=== PATIENT | male | born 1955 | race Caucasian/White ===

== ENCOUNTER 2017-07-21 06:59 | Day surgery (SDC) | payer BC ==
[~2017-07-21] VITALS: Ht 177.8 cm; Wt 97.5 kg
[~2017-07-21 06:59] MED LIST: AMLODIPINE5 MG PO; BAYER ASPIRIN E81 MG PO; CENTRU3 PO; CENTRUM PO; CO Q 10100 MG PO; FISH OIL1000 MG PO; GLUCOSAMI12 PO; OMEGA 31000 MG PO; SG ASA LOW81 M1 PO; [UNRECOGNIZED DRUG - OTHER] PO
[2017-07-21] MEDS ORDERED: TYLENOL 500MG TAB PO (09:07)
[2017-07-21 11:05] VITALS: BP 170/91
== END 2017-07-21 11:18 | disposition home or self-care (01) | DRG 951 ==
LOC: ENDO 06:59
PROVIDERS: ATTEND Surgery
PROC: 0DJD8ZZ Inspection of Lower Intestinal Tract, Via Natural or Artificial Opening Endoscopic (ICD-10-PCS; principal; 2017-07-21)
DX: Z12.11 Encounter for screening for malignant neoplasm of colon (principal)

== ENCOUNTER 2017-09-01 13:51 | Emergency (ER) | payer BC ==
[~2017-09-01 13:51] MED LIST changes: +TYLENOL 500MG TAB PO
== END 2017-09-01 14:30 | disposition left against medical advice (07) | DRG 951 ==
LOC: ED 13:51 → LWOBS 13:59
DX: Z91.19 Patient's noncompliance with other medical treatment and regimen (principal)

== ENCOUNTER 2019-10-12 08:51 | Inpatient (IN) | payer MEDICARE ==
[2019-10-12] VITALS (8 sets, daily range): BP systolic 137–163; BP diastolic 85–99
[~2019-10-12] VITALS: Ht 177.8 cm; Wt 90.7 kg
[~2019-10-12 08:51] MED LIST changes: +BETIMOL0.51 OU; +COQ10100 MG PO; +DORZOLAMIDE HYDRO2 % OU; +LOSARTAN POTASS50 MG PO; +PRESERVISION ARED1 PO; +VITAMIN C1000 MG PO; +XALATAN 0.005%2.5 ML OU
[2019-10-13 03:45] VITALS: BP 143/89
[2019-10-13 05:22] LABS: HEMATOCRIT 40.2 % (39.0-50.0); HEMOGLOBIN 13.2 g/dl (14.0-18.0); IMMATURE GRANULOCYTES 0.7 % (0.0-5.0); MEAN CELL VOLUME 91.6 fL CALC (80.0-100.0); MEAN CORPUSCULAR HGB 30.1 pG CALC (26.0-32.0); MEAN CORPUSCULAR HGB CONC 32.8 g/dL CAL (32.0-36.0); NEUT# 11.49 thou/uL (1.82-7.42); RED BLOOD COUNT 4.39 mill/uL (4.70-6.10); RED CELL DISTRI WIDTH 12.8 % (11.5-15.5)
[2019-10-13 05:36] LABS: ANION GAP 13 (6-22 (CALC)); BUN 16 mg/dL (8-23); BUN/CREATININE RATIO 24 (12-20 (CALC)); CARBON DIOXIDE 24 mmol/l (22-30); CHLORIDE 103 mmol/l (95-108); CREATININE 0.7 mg/dL (0.7-1.3); GFR > 60 ML/MIN (>=60 (CALC)); GFR FOR AFR.AMER. > 60 ML/MIN (>=60 (CALC)); POTASSIUM 4.3 mmol/l (3.5-5.1); SODIUM 137 mmol/l (137-146)
[2019-10-13 07:50] VITALS: BP 160/92
[2019-10-13 10:56] VITALS: BP 143/91
[2019-10-13 15:13] VITALS: BP 151/78
[2019-10-13 18:53] VITALS: BP 144/87
[2019-10-13 23:15] VITALS: BP 138/81
[2019-10-14 03:42] VITALS: BP 140/77
[2019-10-14 08:00] VITALS: BP 133/83
[2019-10-14 16:16] VITALS: BP 137/79
[2019-10-14 18:51] VITALS: BP 154/89
[2019-10-15 04:24] VITALS: BP 145/84
[2019-10-15 05:29] LABS: IMMATURE GRANULOCYTES 0.4 % (0.0-5.0); MEAN CELL VOLUME 93.6 fL CALC (80.0-100.0); MEAN CORPUSCULAR HGB 29.4 pG CALC (26.0-32.0); MEAN CORPUSCULAR HGB CONC 31.5 g/dL CAL (32.0-36.0); NEUT# 7.56 thou/uL (1.82-7.42); RED BLOOD COUNT 3.26 mill/uL (4.70-6.10); RED CELL DISTRI WIDTH 12.8 % (11.5-15.5)
[2019-10-15 05:33] LABS: ANION GAP 8 (6-22 (CALC)); BUN 13 mg/dL (8-23); BUN/CREATININE RATIO 21 (12-20 (CALC)); CARBON DIOXIDE 27 mmol/l (22-30); CHLORIDE 103 mmol/l (95-108); CREATININE 0.6 mg/dL (0.7-1.3); GFR > 60 ML/MIN (>=60 (CALC)); GFR FOR AFR.AMER. > 60 ML/MIN (>=60 (CALC)); POTASSIUM 3.7 mmol/l (3.5-5.1); SODIUM 134 mmol/l (137-146)
[2019-10-15 05:41] LABS: HEMATOCRIT 30.5 % (39.0-50.0); HEMOGLOBIN 9.6 g/dl (14.0-18.0)
[2019-10-15 07:35] VITALS: BP 138/79
[2019-10-15 19:00] VITALS: BP 153/90
[2019-10-16 04:17] VITALS: BP 151/81
[2019-10-16 08:02] VITALS: BP 166/95
[2019-10-16 15:00] VITALS: BP 146/86
[2019-10-16 18:55] VITALS: BP 153/89
[2019-10-17 04:15] VITALS: BP 146/85
[2019-10-17 08:13] VITALS: BP 159/96
[2019-10-17 08:33] VITALS: BP 146/85
[2019-10-17] MEDS ORDERED: PERCOCET 5/325M1 TAB PO (12:57)
== END 2019-10-17 14:20 | disposition home or self-care (01) | DRG 331 ==
LOC: ORM 08:51 → MS2 15:20
PROVIDERS: ADMIT Surgery; ATTEND Surgery
PROC: 0WQF0ZZ Repair Abdominal Wall, Open Approach (ICD-10-PCS; principal; 2019-10-12)
PROC: 0DB80ZZ Excision of Small Intestine, Open Approach (ICD-10-PCS; 2019-10-12)
PROC: 0DN80ZZ Release Small Intestine, Open Approach (ICD-10-PCS; 2019-10-12)
PROC: 0WJF4ZZ Inspection of Abdominal Wall, Percutaneous Endoscopic Approach (ICD-10-PCS; 2019-10-12)
PROC: 0DQ80ZZ Repair Small Intestine, Open Approach (ICD-10-PCS; 2019-10-12)
DX: K43.2 Incisional hernia without obstruction or gangrene (principal); K66.0 Peritoneal adhesions (postprocedural) (postinfection); I10 Essential (primary) hypertension; Z11.59 Encounter for screening for other viral diseases
CPT/HCPCS: J0131; J1100

== ENCOUNTER 2019-10-25 10:36 | Inpatient (IN) | payer MEDICARE ==
[2019-10-25] VITALS (16 sets, daily range): BP systolic 135–181; BP diastolic 66–91
[~2019-10-25] VITALS: Ht 177.8 cm; Wt 89.8 kg
[~2019-10-25 10:36] MED LIST changes: +PERCOCET 5/325M1 TAB PO
--- NOTE | 2019-10-25 10:38 | NUR ---
PT AMBULATED TO RM 9 WITH STEADY GAIT. B/S TRIAGE COMPLETED. AT B/S.
[2019-10-25 11:11] LABS: IMMATURE GRANULOCYTES 2.4 % (0.0-5.0); MEAN CELL VOLUME 96.7 fL CALC (80.0-100.0); MEAN CORPUSCULAR HGB 29.9 pG CALC (26.0-32.0); MEAN CORPUSCULAR HGB CONC 30.9 g/dL CAL (32.0-36.0); NEUT# 16.16 thou/uL (1.82-7.42); RED BLOOD COUNT 2.11 mill/uL (4.70-6.10); RED CELL DISTRI WIDTH 14.9 % (11.5-15.5)
[2019-10-25 11:21] LABS: HEMATOCRIT 20.4 % (39.0-50.0); HEMOGLOBIN 6.3 g/dl (14.0-18.0)
--- NOTE | 2019-10-25 11:30 | NUR ---
PATEINT RESTING AWAITING LAB AND RADIOLOGY RESULTS PATIENT DENIES ANY PAIN AT THIS TIME
[2019-10-25 11:39] LABS: ACT PARTIAL THROMBO TIME 21.9 SECONDS (20.0-32.5); ALBUMIN 3.9 g/dL (3.2-5.0); ALKALINE PHOSPHATASE 66 u/l (38-126); ANION GAP 13 (6-22 (CALC)); BILIRUBIN, TOTAL 0.6 mg/dL (0.0-1.4); BUN 17 mg/dL (8-23); BUN/CREATININE RATIO 26 (12-20 (CALC)); CARBON DIOXIDE 22 mmol/l (22-30); CHLORIDE 102 mmol/l (95-108); CREATININE 0.7 mg/dL (0.7-1.3); GFR > 60 ML/MIN (>=60 (CALC)); GFR FOR AFR.AMER. > 60 ML/MIN (>=60 (CALC)); POTASSIUM 4.1 mmol/l (3.5-5.1); PROTHROMBIN TIME 10.1 SECONDS (9.0-12.5); SGOT/AST 19 u/l (19-48); SODIUM 133 mmol/l (137-146); TOTAL PROTEIN 5.9 g/dL (6.3-8.2)
--- NOTE | 2019-10-25 12:22 | NUR ---
PATIENT RETURNED FROM RADIOLOGY AWAITNG RESULTS AND BLOOD TRANSFUSION
--- NOTE | 2019-10-25 13:39 | NUR ---
BLOOD TRANSFUSING PER ORDERS. PATIENT DENIES ANY SON, PAIN OR ANY OTHER DISCOMFORT AT THIS TIME. FAMILY AT BEDSIDE WILL CONTINUE TO MONITOR
[2019-10-25 14:15] LABS: URINE BILIRUBIN - DIPSTICK NEGATIVE (NEGATIVE); URINE BLOOD DIPSTICK NEGATIVE (NEGATIVE); URINE COLOR YELLOW; URINE GLUCOSE - DIPSTICK NEGATIVE (NEGATIVE); URINE KETONE NEGATIVE (NEGATIVE); URINE LEUK ESTERASE NEGATIVE (NEGATIVE); URINE NITRITE - DIPSTICK NEGATIVE (Negative); URINE PROTEIN - DIPSTICK NEGATIVE (NEG-TRACE); URINE SPECIFIC GRAVITY <=1.005; URINE UROBILINOGEN - DIPSTICK 0.2 E.U./dL (0.2)
--- NOTE | 2019-10-25 14:30 | NUR ---
PATIENT RESTING AWAITING LAB AND RADIOLOGY RESULTS PATIENT DENIES ANY PAIN OR DISCOMFORT AT THIS TIME
[2019-10-25] MEDS ORDERED: CENTRUM PO (15:27)
[2019-10-25] MEDS ORDERED: BETIMOL0.51 (15:28)
[2019-10-25] MEDS ORDERED: COENZYME Q-10100 MG (15:28)
[2019-10-25] MEDS ORDERED: LOSARTAN POTASS50 MG PO (15:29)
[2019-10-25] MEDS ORDERED: DORZOLAMIDE HYDRO2 % (15:29)
[2019-10-25] MEDS ORDERED: ASCORBIC ACD1000 MG PO (15:30)
[2019-10-25] MEDS ORDERED: XALATAN 0.005%2.5 ML OP (15:30)
--- NOTE | 2019-10-25 15:30 | NUR ---
PATIENT RESTING BLOOD TRANSFUSING PER ORDERS. PATIENT DENIES ANY PAIN OR SOB AT THIS TIME
--- NOTE | 2019-10-25 15:45 | NUR ---
REPORT CALLED TO ICU
--- NOTE | 2019-10-25 16:06 | NUR ---
PATIENT TRANSPORTED TO ICU
--- NOTE | 2019-10-25 16:15 | NUR ---
PT ADMITTED TO ICU BED 4 FROM ED FOR RECTAL BLEEDING VIA STRETCHER, PT STOOD AND TRANSFERRED SELF WITH STEADY GAIT. PT A&0X4, ABLE TO MAKE NEEDS KNOWN. SA02@100% ON RA. LS CLEAR THROUGHOUT. PT NST ON TELEMETRY, HR 102. PT DENIES CP, SOB OR DISTRESS AT THIS TIME. PT HAS 13 YANCI MIDLINE AT ABDOMEN FROM RECENT SURGICAL HERNIA REPAIR, EDGES APPROX. CDI, NO DRAINAGE NOTED WITH 2X2 DRSG ON LUQ WITH SERSANG DRAINAGE, RLQ CDI. ABDOMEN DISTENDED AND HARD. PT DENIES TENDERNESS. BSX4 HYPOACTIVE. PT PASSING GAS AND LBM 8-5-20, DIARRHEA. PT ORIENTED TO ROOM, UNIT AND CALL LIGHT. PT VERBALIZED UNDERSTANDING.
--- NOTE | 2019-10-25 16:30 | NUR ---
Peripheral IV started. IV access obtained with #20 AutoGuard at Left Forearm with IV stick attempts. Flushes easily with good blood return.
--- NOTE | 2019-10-25 16:55 | NUR ---
LABS DRAWN AT BEDSIDE. PT TOLERATED WELL. JAZLYN HUMPHREY AT BEDSIDE FOR ASSESSMENT AND TO DISCUSS PLAN OF CARE. AT BEDSIDE.
--- NOTE | 2019-10-25 18:24 | NUR ---
LAB AT BEDSIDE FOR BLOOD DRAW. PT TOLERATED WELL.
--- NOTE | 2019-10-25 19:45 | NUR ---
PATIENT ASLEEP. RESP NON-LABORED. SR ON MONITOR.
--- NOTE | 2019-10-25 20:35 | NUR ---
PATIENT RESTING IN BED WATCHING TV. NO C/O PAIN OR DISCOMFORTS. RESP NON-LABORED. RA O2 SAT 98% LUNGS CLEAR. ABD DISTENDED AND FIRM WITH HYPOACTIVE BOWEL SOUNDS. PATIENT S/P ABD SURGERY AAPROX 2 WEEKS AGO-MIDLINE ABD INC SUKHDEV WITH YANCI INTACT, INC LINE WELL APPROXIMATED. SALINE LOCK INTACT IN LFA. IV IN RAC WITH NS INFUSING AT 75 ML/HR, BOTH SITES BENIGN. CARDIAC MONTIOR SHOWS SR. DICSUSSED PLAN OF CARE. DENIES NEEDS AT THIS TIME. CALL MOORE IN REACH.
--- NOTE | 2019-10-25 21:50 | NUR ---
VSS. NEW ORDERS RECEIVED FROM DR HERRMANN.
[2019-10-25 22:17] LABS: HEMOGLOBIN 7.3 g/dl (14.0-18.0)
--- NOTE | 2019-10-25 23:30 | NUR ---
PATIENT UP TO BSC, PASSED A MODERATE AMOUNT OF LIQUID BURGANDY STOOL. PATIENT STATES FELT WEAK AND BROKE INTO A SWEAT WHILE HE WAS UP. BACK IN BED NOW. PATIENT REINSTUCTED TO CALL FOR ASSISTANCE. BP 172/75, HR 100, RR 16, O2 SAT 97% SALINE LOCK IN LFA LEAKING AT SITE WHEN FLUSHED, DC'D SITE. RAC SITE REMAINS PATENT WITH NS AT 75 ML/HR.
[2019-10-26] VITALS (21 sets, daily range): BP systolic 110–167; BP diastolic 68–90
--- NOTE | 2019-10-26 00:15 | NUR ---
RESTING WITH EYES CLOSED.
--- NOTE | 2019-10-26 02:00 | NUR ---
VSS. SR ON MONITOR.
--- NOTE | 2019-10-26 04:00 | NUR ---
PATIENT ASLEPP. RESP NON-LABORED. VSS. IV INFUSING WITHOUT INCIDENT.
--- NOTE | 2019-10-26 05:10 | NUR ---
ELEVATOR INSTALLER HERE TO DRAW BLOOD FOR AM LABS.
[2019-10-26 05:26] LABS: HEMATOCRIT 20.6 % (39.0-50.0); IMMATURE GRANULOCYTES 1.6 % (0.0-5.0); MEAN CELL VOLUME 95.8 fL CALC (80.0-100.0); MEAN CORPUSCULAR HGB 30.7 pG CALC (26.0-32.0); NEUT# 14.04 thou/uL (1.82-7.42); RED BLOOD COUNT 2.15 mill/uL (4.70-6.10); RED CELL DISTRI WIDTH 15.5 % (11.5-15.5)
[2019-10-26 05:54] LABS: ALKALINE PHOSPHATASE 44 u/l (38-126); ANION GAP 8 (6-22 (CALC)); BILIRUBIN, TOTAL 0.8 mg/dL (0.0-1.4); BUN 16 mg/dL (8-23); BUN/CREATININE RATIO 23 (12-20 (CALC)); CARBON DIOXIDE 23 mmol/l (22-30); CHLORIDE 106 mmol/l (95-108); CREATININE 0.7 mg/dL (0.7-1.3); GFR > 60 ML/MIN (>=60 (CALC)); GFR FOR AFR.AMER. > 60 ML/MIN (>=60 (CALC)); POTASSIUM 4.5 mmol/l (3.5-5.1); SGOT/AST 17 u/l (19-48); SODIUM 133 mmol/l (137-146); TOTAL PROTEIN 4.9 g/dL (6.3-8.2)
[2019-10-26 05:57] LABS: HEMOGLOBIN 6.6 g/dl (14.0-18.0)
--- NOTE | 2019-10-26 06:15 | NUR ---
DR HERRMANN INFORMED OF AM HG/HCT RESULTS OF 6.6/20.6. ORDERS RECEIVED.
--- NOTE | 2019-10-26 06:45 | NUR ---
RECIEVED REPORT FROM LESA GRAY. ASSUMED PT CARE.
--- NOTE | 2019-10-26 07:30 | NUR ---
PT A&0X4, ABLE TO MAKE NEEDS KNOWN. RESPIRATIONS EVEN/UNLABORED, SA02@99%RA. LS CLEAR THROUGHOUT, ABDOMEN HARD/DISTENDED. YANCI INTACT, PT REMAINS SR ON TELEMETRY, HR 94. PT DENIES CP, SOB OR DISTRESS AT THIS TIME. PT REMAINS NPO AT THIS TIME. CALL LIGHT IN REACH. WILL MONITOR.
--- NOTE | 2019-10-26 08:00 | NUR ---
DR. BARRETT AT BEDSIDE FOR AN ASSESSMENT AND TO DISCUSS PLAN OF CARE. NEW ORDERS RECIEVED.
--- NOTE | 2019-10-26 08:10 | NUR ---
DR. HERRMANN AT BEDSIDE FOR ASSESSMENT AND TO DISCUSS PLAN OF CARE. NEW ORDERS RECIEVED.
--- NOTE | 2019-10-26 08:45 | NUR ---
PT ASSISTED TO BSC, LG BLOODY BM.
--- NOTE | 2019-10-26 09:00 | NUR ---
DRESSING TO ABDOMEN CHANGED. PT TOLERATED WELL.
--- NOTE | 2019-10-26 09:30 | NUR ---
PRBC INFUSION PLACED ON HOLD, IV SITE LEAKING. DR. HERRMANN NOTIFIED. BLOOD BANK NOTIFIED, BLOOD CAN BE CLAMPED AND HELD FOR UP TO 8HRS PER ADEBAYO, PICC LINE ORDERED. THEN INFUSION WITH RESUME. DR. HERRMANN AWARE. WILL MONITOR.
--- NOTE | 2019-10-26 09:45 | NUR ---
PT OFF UNIT FOR PICC LINE PLACEMENT.
--- NOTE | 2019-10-26 10:30 | NUR ---
PT BACK ON UNIT. INFUSION RESUMED.
--- NOTE | 2019-10-26 10:45 | NUR ---
IV site discontinued, cath intact. No edema , no redness, voices no discomfort.
--- NOTE | 2019-10-26 10:50 | NUR ---
ARRINVED AT BEDSIDE
--- NOTE | 2019-10-26 12:00 | NUR ---
PT ASSISTED TO BSC, MODERATE BURGENDY BM
--- NOTE | 2019-10-26 14:00 | NUR ---
PT BACK IN BED, CONTINUES WITH BOWEL PREP. BLOOD TRANSFUSION ENDED. NO DISTRESS NOTED AT THIS TIME. CALL LIGHT IN REACH. WILL MONITOR.
--- NOTE | 2019-10-26 16:00 | NUR ---
ARRIVED AT BEDSIDE.
--- NOTE | 2019-10-26 18:00 | NUR ---
OBTAIN LAB FROM POWER PICC, PT TOLERATED WELL. REMAINS AT BEDSIDE. CALL LIGHT IN REACH. WILL MONITOR.
[2019-10-26 18:22] LABS: HEMATOCRIT 23.2 % (39.0-50.0); HEMOGLOBIN 7.4 g/dl (14.0-18.0)
--- NOTE | 2019-10-26 19:00 | NUR ---
RECEIVED REPORT FROM LESA PACHECO. PT RESTING IN BED, WILL CONTINUE TO MONITOR.
--- NOTE | 2019-10-26 20:10 | NUR ---
PT RESTING IN BED, ALERT AND ORIENTED. BSC EMPTIED, PT HAD A LARGE LIQUID BM COFFEE GROUND COLOR. PT PROVIDED WITH ICE WATER PER REQUEST.
--- NOTE | 2019-10-26 22:05 | NUR ---
PT RESTING IN BED, ALERT AND ORIENTED. RESPIRATIONS EVEN AND UNLABORED ON RA. LUNGS SOUND CLEAR. PEDAL PULSES ARE STRONG. PT DENIES ANY PAIN AT THIS TIME. PT FINISHED BOWEL PREP, PROVIDED PT WITH A CUP OF ICE PER REQUEST. DRESSING TO LEFT ABD SATURATED, DRESSING REMOVED, CLEARNED WITH SALINE, APPLIED NEW DRESSING 2X2 COVERED BY TEGRADERM, PT TOLERATED WELL. SAFETY PRECAUTIONS IN PLACE. WILL CONTINUE TO MONTIOR.
[2019-10-27] VITALS (25 sets, daily range): BP systolic 80–137; BP diastolic 61–75
--- NOTE | 2019-10-27 00:40 | NUR ---
PT RESTING IN BED WITH EYES CLOSED. RESPIRATIONS SHALLOW ON RA. SAFEYT PRECAUTIONS IN PLACE. WILL CONTINUE TO MONTIOR.
--- NOTE | 2019-10-27 02:29 | NUR ---
PT RESTING IN BED, NO S/S OF DISTRESS
--- NOTE | 2019-10-27 04:20 | NUR ---
PT RESTING IN BED. NO S/S OF DISTRESS AT THIS TIME.
[2019-10-27 05:50] LABS: HEMATOCRIT 22.3 % (39.0-50.0); IMMATURE GRANULOCYTES 1.7 % (0.0-5.0); MEAN CELL VOLUME 94.5 fL CALC (80.0-100.0); MEAN CORPUSCULAR HGB 29.7 pG CALC (26.0-32.0); MEAN CORPUSCULAR HGB CONC 31.4 g/dL CAL (32.0-36.0); NEUT# 7.48 thou/uL (1.82-7.42); RED BLOOD COUNT 2.36 mill/uL (4.70-6.10); RED CELL DISTRI WIDTH 16.3 % (11.5-15.5)
[2019-10-27 06:23] LABS: BUN 9 mg/dL (8-23); BUN/CREATININE RATIO 14 (12-20 (CALC)); CARBON DIOXIDE 25 mmol/l (22-30); CHLORIDE 106 mmol/l (95-108); CREATININE 0.7 mg/dL (0.7-1.3); GFR > 60 ML/MIN (>=60 (CALC)); GFR FOR AFR.AMER. > 60 ML/MIN (>=60 (CALC)); SODIUM 133 mmol/l (137-146)
--- NOTE | 2019-10-27 06:24 | NUR ---
PT RESTING IN BED RESPIRATIONS EVEN AND UNLABORED ON RA. NO S/S OF DISTRESS AT THIS TIME
[2019-10-27 06:36] LABS: ANION GAP 5 (6-22 (CALC)); POTASSIUM 3.4 mmol/l (3.5-5.1)
--- NOTE | 2019-10-27 07:15 | NUR ---
pt awake in bed; no apparent distress noted; pt offers no complaints; assessment completed at this time; pt alert and oriented; denies pain; no n/v noted; resp even and unlabored; lungs clear; skin color wnl; ra; hr reg; strong pulses; no edema noted; st/pvc on monitor; abd soft with bs present; liq dark brown/blood/coffee ground stool noted; pt admits to voiding without complication; no urine to inspect at this time; dual picc line intact to kevin with ivf infusing without complication; no redness or edema noted at site; midline incision incision well approx; no s/sx of infection noted; no drainage noted; dressing to llq with bloody drainage noted; will change dressing; npo since midnight; plan of care/ am meds explained; call light within reach; will continue to monitor
--- NOTE | 2019-10-27 07:54 | NUR ---
Dr Benjamin present at bedside to assess pt and discuss plan of care
--- NOTE | 2019-10-27 08:00 | NUR ---
0800-Dr Benjamin present in room; requesting staff assistance; pt noted pre syncopal; pale and diaphoretic; sr on monitor; sbp 80s; noted leaning to right side; pt arousable/ responds slowly; pt admits to weakness; fluid bolus initiated per verbal order by Dr Benjamin; staff remains at bedside 0808- pt recovered to baseline; OR Altaf RN on unit at this time; pt requesting to transfer self to stretcher; pt transferred x4 staff assist; pt left unit with OR in stable condition;
--- NOTE | 2019-10-27 08:08 | NUR ---
pt transferred to OR via bed with Christiana Solitario RN in stable condition; ivf bolus infusing without complication;
--- NOTE | 2019-10-27 09:28 | NUR ---
Dr Eckert on unit; call placed to Dr Benjamin as per request; to report
--- NOTE | 2019-10-27 10:02 | NUR ---
pt received from OR via stretcher in stable; transferred to bed with minimal assistance; admits to feeling better; sr on monitor; bedside report received from LESA Shannon; prbc's infusing without complication; no redness or edema noted at site; vss; plan of care including transfer explained; will continue to monitor
--- NOTE | 2019-10-27 10:08 | NUR ---
call received from Dr Benjamin; pt to be transferred to [facility] with Dr Greenwood as accepting hospitalist; transfer center to be called to initiate transfer; will continue to monitor
--- NOTE | 2019-10-27 10:36 | NUR ---
[facility] transfer center called per instructional writer; information provided; facesheet, covid results faxed; awaiting return call
--- NOTE | 2019-10-27 10:46 | NUR ---
received called from spouse Kylie Mccray; update provided; will continue to monitor
--- NOTE | 2019-10-27 11:00 | NUR ---
spouse present at bedside
--- NOTE | 2019-10-27 12:00 | NUR ---
1st unit of prbc's completed; pt tolerated well; no s/sx of reaction noted; iv intact and patent; no redness or edema noted at site; sr on monitor; vss; will continue to monitor
--- NOTE | 2019-10-27 12:14 | NUR ---
call received from ALFA Steward; bed assignment received; pt to go to 4A- bed 6; report to be called to [phone]
--- NOTE | 2019-10-27 12:22 | NUR ---
[facility] transport [facility] called per this proposal lead writer; information provided for transfer; ETA 2pm
--- NOTE | 2019-10-27 12:37 | NUR ---
2nd unit of prbcs verified at bedside per protocol; s/sx of reaction explained and pt informed to notify staff immed of concerns/reaction; infusion initiated at this time; will continue to monitor
--- NOTE | 2019-10-27 12:41 | NUR ---
ALFA Steward call per check writer with ETA as per request
--- NOTE | 2019-10-27 12:59 | NUR ---
senior underwriter attempting to call report; [facility] staff will return call to senior underwriter d/t moving the patient to another unit
--- NOTE | 2019-10-27 14:06 | NUR ---
report called to [facility] at [phone]; new bed assisgnment 4B- bed 2
--- NOTE | 2019-10-27 14:22 | NUR ---
Dominik Dominguez called; ETA 30 min
--- NOTE | 2019-10-27 15:00 | NUR ---
[facility] Transport on unit; report provided;
--- NOTE | 2019-10-27 15:20 | NUR ---
pt discharged with [facility] transport in stable condition; pt belongings sent with spouse; spouse at bedside
--- NOTE | 2019-10-27 15:26 | NUR ---
ALFA Quezada called this display card writer; informed pt discharged at 1520; ETA provided
== END 2019-10-27 12:50 | disposition short-term general hospital (02) | DRG 919 ==
LOC: ED 10:36 → ED-I 13:30 → ED 14:01 → ICU 14:02 → ED-I 14:02 → ICU 14:07
PROVIDERS: Nurse Practitioner; Student in an Organized Health Care Education/Training Program; ADMIT Internal Medicine; ATTEND Internal Medicine
PROC: 30233N1 Transfusion of Nonautologous Red Blood Cells into Peripheral Vein, Percutaneous Approach (ICD-10-PCS; principal; 2019-10-25)
PROC: 30233N1 Transfusion of Nonautologous Red Blood Cells into Peripheral Vein, Percutaneous Approach (ICD-10-PCS; 2019-10-25)
PROC: 30233N1 Transfusion of Nonautologous Red Blood Cells into Peripheral Vein, Percutaneous Approach (ICD-10-PCS; 2019-10-26)
PROC: 30233N1 Transfusion of Nonautologous Red Blood Cells into Peripheral Vein, Percutaneous Approach (ICD-10-PCS; 2019-10-26)
PROC: 02HV33Z Insertion of Infusion Device into Superior Vena Cava, Percutaneous Approach (ICD-10-PCS; 2019-10-26)
PROC: B518ZZA Fluoroscopy of Superior Vena Cava, Guidance (ICD-10-PCS; 2019-10-26)
PROC: 0DB78ZX Excision of Stomach, Pylorus, Via Natural or Artificial Opening Endoscopic, Diagnostic (ICD-10-PCS; 2019-10-27)
PROC: 0DJD8ZZ Inspection of Lower Intestinal Tract, Via Natural or Artificial Opening Endoscopic (ICD-10-PCS; 2019-10-27)
PROC: 30233N1 Transfusion of Nonautologous Red Blood Cells into Peripheral Vein, Percutaneous Approach (ICD-10-PCS; 2019-10-27)
PROC: 30233N1 Transfusion of Nonautologous Red Blood Cells into Peripheral Vein, Percutaneous Approach (ICD-10-PCS; 2019-10-27)
DX: K91.840 Postprocedural hemorrhage of a digestive system organ or structure following a digestive system procedure (principal); K57.31 Diverticulosis of large intestine without perforation or abscess with bleeding; D62 Acute posthemorrhagic anemia; I10 Essential (primary) hypertension; K29.70 Gastritis, unspecified, without bleeding; K57.30 Diverticulosis of large intestine without perforation or abscess without bleeding; H40.9 Unspecified glaucoma; D72.829 Elevated white blood cell count, unspecified; Y83.6 Removal of other organ (partial) (total) as the cause of abnormal reaction of the patient, or of later complication, without mention of misadventure at the time of the procedure; Z90.49 Acquired absence of other specified parts of digestive tract; Z11.59 Encounter for screening for other viral diseases
CPT/HCPCS: P9016; Q9967; S0164